=== PATIENT | male | born 1965 | race Caucasian/White ===

== ENCOUNTER 2020-07-13 16:58 | Outpatient (REF) | payer MEDICAID, SELFPAY ==
--- NOTE | ~2020-07-13 | XR_ITS ---
EXAMINATION: XR CHEST XR CERVICAL SPINE XR THORACIC SPINE CLINICAL INFORMATION: Cervical and thoracic pain. COMPARISON: Chest x-ray of 06/28/2008 TECHNIQUE: PA and lateral chest, AP and lateral thoracic spine, and 6-view cervical spine. FINDINGS: There is no evidence of acute parenchymal disease, pneumothorax, or pleural effusion. Heart normal size. No evidence of pulmonary edema. AP and lateral views of the thoracic spine demonstrate an approximately 20% anterior compression fracture of the T8 vertebral body as well as an approximately 50% compression fracture anterior aspect of the T4 vertebral body. The T8 vertebral body fracture was present on previous study of 06/28/2008. There appears to be progression of the compression fracture of the T4 vertebral body since study of 06/28/2008. No abnormal paraspinal line bulge is seen. No significant disc space narrowing is appreciated. Six views of the cervical spine do not demonstrate any evidence of acute fracture. No abnormal prevertebral soft tissue swelling is appreciated. There is mild disc space narrowing seen at the C6-C7 disc space level. No destructive bony lesions identified. No bony encroachment of the neural foramina identified. XR/XR cervical spine 4V IMPRESSION: No acute parenchymal disease within the chest. Anterior compression fractures of the T4 and T8 vertebral bodies, as described. No significant bony abnormality of the cervical spine.
--- NOTE | ~2020-07-13 | XR_ITS ---
EXAMINATION: XR CHEST XR CERVICAL SPINE XR THORACIC SPINE CLINICAL INFORMATION: Cervical and thoracic pain. COMPARISON: Chest x-ray of 06/28/2008 TECHNIQUE: PA and lateral chest, AP and lateral thoracic spine, and 6-view cervical spine. FINDINGS: There is no evidence of acute parenchymal disease, pneumothorax, or pleural effusion. Heart normal size. No evidence of pulmonary edema. AP and lateral views of the thoracic spine demonstrate an approximately 20% anterior compression fracture of the T8 vertebral body as well as an approximately 50% compression fracture anterior aspect of the T4 vertebral body. The T8 vertebral body fracture was present on previous study of 06/28/2008. There appears to be progression of the compression fracture of the T4 vertebral body since study of 06/28/2008. No abnormal paraspinal line bulge is seen. No significant disc space narrowing is appreciated. Six views of the cervical spine do not demonstrate any evidence of acute fracture. No abnormal prevertebral soft tissue swelling is appreciated. There is mild disc space narrowing seen at the C6-C7 disc space level. No destructive bony lesions identified. No bony encroachment of the neural foramina identified. XR/XR chest 2V IMPRESSION: No acute parenchymal disease within the chest. Anterior compression fractures of the T4 and T8 vertebral bodies, as described. No significant bony abnormality of the cervical spine.
--- NOTE | ~2020-07-13 | XR_ITS ---
EXAMINATION: XR CHEST XR CERVICAL SPINE XR THORACIC SPINE CLINICAL INFORMATION: Cervical and thoracic pain. COMPARISON: Chest x-ray of 06/28/2008 TECHNIQUE: PA and lateral chest, AP and lateral thoracic spine, and 6-view cervical spine. FINDINGS: There is no evidence of acute parenchymal disease, pneumothorax, or pleural effusion. Heart normal size. No evidence of pulmonary edema. AP and lateral views of the thoracic spine demonstrate an approximately 20% anterior compression fracture of the T8 vertebral body as well as an approximately 50% compression fracture anterior aspect of the T4 vertebral body. The T8 vertebral body fracture was present on previous study of 06/28/2008. There appears to be progression of the compression fracture of the T4 vertebral body since study of 06/28/2008. No abnormal paraspinal line bulge is seen. No significant disc space narrowing is appreciated. Six views of the cervical spine do not demonstrate any evidence of acute fracture. No abnormal prevertebral soft tissue swelling is appreciated. There is mild disc space narrowing seen at the C6-C7 disc space level. No destructive bony lesions identified. No bony encroachment of the neural foramina identified. XR/XR thoracic spine 3V IMPRESSION: No acute parenchymal disease within the chest. Anterior compression fractures of the T4 and T8 vertebral bodies, as described. No significant bony abnormality of the cervical spine.
[2020-07-13 17:35] LABS: MANUAL DIFF FLAG NO
[2020-07-13 17:46] LABS: Basophils Absolute Auto 0.1 X10*3/uL (0.0-0.2); Basophils Percent Auto 0.9 % (0-2); Eosinophils Absolute Auto 0.8 X10*3/uL (0.0-0.4); Eosinophils Percent Auto 6.8 % (0-4); Hematocrit 44.3 % (42-52); Imm Gran Abs Auto 0.03 X10*3/uL (0.00-0.03); Imm Gran Pct Auto 0.3 % (0.0-0.4); Lymphocytes Absolute Auto 2.5 X10*3/uL (1.2-4.9); Lymphocytes Percent Auto 21.2 % (20-40); Mean Corpuscular HGB Conc 33.9 g/dl (31.0-36.0); Mean Corpuscular Hemoglobin 29.5 pg (27.0-33.0); Mean Corpuscular Volume 87.2 fL (80-98); Mean Platelet Volume 9.4 fL (9.4-12.4); Monocytes Absolute Auto 1.4 X10*3/uL (0.1-1.2); Monocytes Percent Auto 11.9 % (2-11); Neutrophils Absolute Auto 6.8 X10*3/uL (2.0-8.3); Neutrophils Percent Auto 58.9 % (45-73); Platelet Count 370 X10*3/uL (160-400); Red Blood Count 5.08 X10*6/uL (4.60-5.80); Red Cell Distribution Width 12.5 % (11.0-16.0); White Blood Count 11.6 X10*3/uL (4.8-10.8)
[2020-07-13 18:00] LABS: Alanine Aminotransferase 29 U/L (0-40); Albumin Level 4.5 g/dL (3.5-5.0); Alkaline Phosphatase 87 U/L (39-117); Anion Gap 13 (12-20); Aspartate Amino Transferase 22 U/L (5-37); Bilirubin Total 0.4 mg/dL (0.0-1.0); Blood Urea Nitrogen 26 mg/dL (9-16); C Reactive Protein 0.28 mg/dL (< or = 0.50); Calcium 9.5 mg/dL (8.4-10.2); Carbon Dioxide 27 mmol/L (22-29); Chloride 100 mmol/L (96-108); Estimated Glomerular Filt Rate > 60; Glucose Random 92 mg/dL (60-115); Potassium 4.4 mmol/L (3.3-5.1); Sodium 136 mmol/L (135-145); Total Protein 7.1 g/dL (6.5-8.0)
[2020-07-14 17:31] LABS: Vitamin B12 414 pg/mL (200-900)
== END 2020-07-13 16:59 | disposition home or self-care (01) ==
LOC: HO.LAB 16:58
PROVIDERS: PCP Internal Medicine; Visit Provider Internal Medicine
DX: M54.6 Pain in thoracic spine (principal); R53.1 Weakness; M54.2 Cervicalgia
CPT/HCPCS: 36415; 71046; 72050; 72072; 80053; 82607; 85025; 86140

== ENCOUNTER 2020-07-22 15:48 | Outpatient (REF) | payer MEDICAID, SELFPAY ==
--- NOTE | ~2020-07-22 | MR_ITS ---
EXAMINATION: MR THORACIC SPINE WITHOUT CONTRAST CLINICAL INFORMATION: Wedge fracture of T4 and T8. COMPARISON: Thoracic spine radiographs from 07/13/2020. TECHNIQUE: MRI of the thoracic spine was obtained using routine sequences without contrast. FINDINGS: Limited evaluation of the cervical spine is notable for mild to moderate degenerative spondyloarthropathy from C3-C7. Mild degenerative retrolisthesis of C6 on C7. Mild degenerative anterolisthesis of T3 on T4. Otherwise, normal anatomic alignment. Anterior compression deformities of the superior endplates of T3, T4, T5, and T8 without residual marrow edema. There is 20%, 40%, 10%, and 25% loss of anterior body height respectively. Minimal retropulsion of the posterior body wall of T4 (0.2 cm). Mild to moderate degenerative disc disease from T3-T11. Associated mild Modic type II discogenic endplate changes. Mild marrow edema within the left greater than right posterior elements of T3-T4 suggestive of degenerative stress reaction. No additional suspicious marrow edema. The remaining vertebral body heights are maintained. No spinal cord signal abnormalities. The conus medullaris terminates at the level of L1-L2. No significant abnormalities of the paraspinal musculature. Limited evaluation of the intrathoracic structures without significant abnormalities. The descending thoracic aorta is of normal contour and caliber. AXIAL SPINAL LEVELS: Mild posterior disc herniations from T3-T10. Mild multilevel facet joint arthropathy, most notably in the lower thoracic spine. No overt spinal canal or neural foraminal stenosis. MR/MR thoracic spine wo con IMPRESSION: Chronic appearing compression deformities of T3, T4, T5, and T8. No residual marrow edema to suggest acuity. Mild edema within the T3-T4 facets suggestive of degenerative stress reaction. Mild to moderate multilevel degenerative spondyloarthropathy of the thoracic spine as described in detail above. No overt spinal canal stenosis or nerve root compression.
== END 2020-07-22 15:49 | disposition home or self-care (01) ==
LOC: HO.MRI 15:48
PROVIDERS: Visit Provider Internal Medicine
DX: S22.040A Wedge compression fracture of fourth thoracic vertebra, initial encounter for closed fracture (principal); S22.060A Wedge compression fracture of T7-T8 vertebra, initial encounter for closed fracture; X58.XXXA Exposure to other specified factors, initial encounter; Y93.9 Activity, unspecified; Y92.9 Unspecified place or not applicable; Y99.9 Unspecified external cause status
CPT/HCPCS: 72146

== ENCOUNTER 2020-08-05 15:46 | Outpatient (REF) | payer MEDICAID, SELFPAY ==
--- NOTE | ~2020-08-05 | MR_ITS ---
EXAMINATION: MR CERVICAL SPINE WITHOUT CONTRAST CLINICAL INFORMATION: 54-year-old with right-sided cervical radicular symptoms. COMPARISON: None TECHNIQUE: MRI of the cervical spine was obtained using routine sequences without contrast. FINDINGS: ALIGNMENT: Mild upper thoracic kyphotic angulation noted with normal cervical lordotic curvature. No spondylolisthesis or retrolisthesis. CRANIOCERVICAL JUNCTION/C1-C2 ARTICULATIONS:?Intact and aligned. Mild degenerative changes at the anterior atlantodental joint. VISUALIZED INTRACRANIAL STRUCTURES: Within normal limits. VERTEBRAL BODIES: There is a moderate chronic anterior wedge compression fracture deformity of the T4 vertebral body and a mild chronic anterior wedge compression fracture deformity of T3. Remaining vertebral body heights are well maintained. BONE MARROW: No significant bone marrow replacement or bone marrow edema. No nonhealed fractures or focally aggressive osseous lesions. C2-C3: Disc space height is well maintained without disc herniation or spondylosis. There is minor facet arthrosis on the right with no significant canal or neural foraminal stenosis. C3-C4: Mild loss of disc space height is noted. There is a broad-based central disc herniation, with effacement of the central dural sac without cord impingement. There is uncovertebral arthrosis on the right and minor facet spurring bilaterally, with moderate right-sided neural foraminal stenosis. C4-C5: Disc space height is well maintained. Tiny central disc protrusion noted. Schmorl's node noted along the inferior endplate of C4 on the right. No significant spondylosis. There is uncovertebral arthrosis, right more the left and minor facet spurring, with moderate right-sided and mild left-sided neural foraminal stenosis without significant canal stenosis. C5-C6: Disc space height is well maintained. There is a mild central to right paramedian disc protrusion with moderate flattening of the dural sac asymmetric to the right without cord impingement. There is mild uncinate process spurring and mild facet hypertrophic change, with mild bilateral neural foraminal stenosis. Very small perineural cysts are noted in the neural foramina bilaterally. Mild spinal canal stenosis noted. C6-C7: Moderate loss of disc space height is noted with a central to right paramedian disc protrusion, with flattening of the dural sac asymmetric to the right without cord impingement. There is uncinate process spurring and minor facet spurring bilaterally with moderate bilateral neural foraminal stenosis. Perineural cyst noted in the right neural foramen. Mild spinal canal stenosis noted. C7-T1: Disc space height is well maintained without disc herniation or spondylosis. There is mild left-sided and moderate right-sided facet arthropathy with mild right-sided neural foraminal stenosis. No disc herniation or spondylosis and no significant canal stenosis. T1-T2: Disc space height is well maintained with minor facet arthropathy on the left without significant canal or neural foraminal stenosis. The cervical and visualized upper thoracic spinal cord is normal in signal intensity throughout without focal lesion, edema or syrinx formation. MR/MR cervical spine wo con IMPRESSION: 1. Multilevel cervical discogenic degenerative change, with multilevel central to right paramedian disc herniations without spinal cord impingement. Mild degrees of spinal canal stenosis are noted at C5-C6 and C6-C7. 2. Multilevel bilateral DJD with multilevel [id number] degrees of neural foraminal stenosis as described above bilaterally. 3. Upper thoracic kyphosis, with [id number] chronic, healed compression fracture deformities of T3 and T4 without significant retropulsion. 4. Incidental note is made of mucosal thickening and possible retention cyst formation in the right maxillary sinus. Some mucosal thickening left maxillary sinus also noted.
== END 2020-08-05 15:47 | disposition home or self-care (01) ==
LOC: HO.MRI 15:46
PROVIDERS: Visit Provider Internal Medicine
DX: M25.511 Pain in right shoulder (principal); M25.529 Pain in unspecified elbow
CPT/HCPCS: 72141